=== PATIENT | female | born 1935 | race Caucasian/White ===

== ENCOUNTER 2016-09-29 14:52 | Inpatient (IN) | payer MEDICARE, BC ==
[~2016-09-29] VITALS: Ht 162.6 cm; Wt 72.6 kg
[~2016-09-29 14:52] MED LIST: ALTACE5 MG PO; BACTRIM DS TABL1 TAB PO; DURAGESIC1 PATCH .2 TD; NORVASC5 MG PO; PERCOCET 10/3251 TA1 PO
--- NOTE | 2016-09-29 19:00 | NUR ---
PATIENT SUPINE IN BED. HOB 30 DEGREES. AAOX4. RR EVEN AND UNLABORED. 0 S/S OF DISTRESS. STATES PAIN IS AN 11. IV TO LEFT AC PATENT WITH NO REDNESS OR SWELLING. SLINE TO RUE. FAMILY AT BEDSIDE.
[2016-09-29] MEDS ORDERED: MOBIC7.5 MG PO (20:24)
[2016-09-29] MEDS ORDERED: GLUCOPHAGE500 MG PO (20:25)
[2016-09-29] MEDS ORDERED: NEXIUM40 MG PO (20:27)
[2016-09-29] MEDS ORDERED: ROBAXIN-750750 MG PO (20:27)
[2016-09-29] MEDS ORDERED: GABAPENTIN100 MG PO (20:29)
[2016-09-29 20:39] VITALS: BP 129/40; BMI 27.5
--- NOTE | 2016-09-29 21:00 | NUR ---
ASSESSMENT AND ADMIT COMPLETE. INSERTED LEBRON CATHETER PER ORDER. INITIATED IV FLUIDS PER ORDER. DILAUDID GIVEN FOR PAIN. WILL REASSESS. PUT SCD'S ON PATIENT. ATTACHED BOX ALARM. ATTEMPTED TO PLACE PATIENT ON TELEMETRY PER ORDER, BUT NO BOXES AVAILABLE.
[2016-09-30] VITALS: BP 154/47
--- NOTE | 2016-09-30 03:58 | NUR ---
PATIENT'S BP IS 173/53 BUT SHE IS STATING HER PAIN IS A 15/10. MORPHINE GIVEN. WILL REASSESS BP AND PAIN LEVEL.
[2016-09-30 04:00] VITALS: BP 173/53
--- NOTE | 2016-09-30 07:30 | NUR ---
PT ASSESSMENT COMPLETE AWAKE AND ALERT ORINETD X 3 LUNGS CLEAR BILAT.PT WITH SLING NOTED TO RIGHT SHOULDER HAS NOTED FX HUMEROUS NPO FOR OR TODAY WITH DR JAY FOR ORIF. HAS NOTED PAIN CONTROL AT THIS TIME. LEBRON PATENT TO CLEAR YELLOW URINE PER GRAVITY FLOW. WILL MONITOR.
[2016-09-30 07:40] VITALS: BP 104/80
[2016-09-30 08:09] LABS: BASOPHILS 0.2 % (0-2); EOSINOPHILS 0.9 % (0-7); HEMATOCRIT 26.6 % (36.0-48.0); HEMOGLOBIN 8.8 g/dL (12-16); IMMATURE GRANULOCYTES 0.2 % (0-5); MCH 30.9 pg (26.0-34.0); MCHC 33.1 g/dL (31.0-37.0); MCV 93.3 fL (80.0-100.0); MEAN PLATELET VOLUME 10.9 fL (7.4-10.4); MONOCYTES 10.6 % (2-11); NEUTROPHILS 75.1 % (40-80); RBC 2.85 10x6/uL (4.00-5.40); RDW 12.7 % (11.5-14.5); WBC 10.6 10x3/uL (4.8-10.8)
[2016-09-30 08:13] LABS: PLATELET COUNT 162 10x3/uL (130-400)
[2016-09-30 08:18] LABS: APTT 26.9 SECONDS (22.8-39.4)
[2016-09-30 08:22] LABS: ANION GAP 9.3 mmol/L (8-16); CALCIUM 8.4 mg/dL (8.5-10.1); CARBON DIOXIDE 29.5 mmol/L (21.0-32.0); CREATININE - SERUM 0.9 mg/dL (0.6-1.3); POTASSIUM - SERUM 4.8 mmol/L (3.5-5.1)
--- NOTE | 2016-09-30 09:09 | NUR ---
* Is the patient Alert and Oriented? Yes 0 * How many steps to enter\exit or inside your home? 15 0 * PCP [facility] 0 * Pharmacy [facility] [place] 0 * Preadmission Environment Home with Family 0 * ADLs Independent 0 * Equipment Elevated [place] Seat Glucometer Rolling Walker Shower Chair Walker 0 * List name and contact numbers for known caregivers / representatives who currently or will assist patient after discharge: PHILIP () 0 * Community resources currently utilized None 0 * Additional services required to return to the preadmission environment? Yes 0 * Can the patient safely return to the preadmission environment? Yes 0 * Has this patient been hospitalized within the prior 30 days at any hospital? No 0 Grand Total: 0 Patient Name: SUSANNA ARROYO Admission Status: ER Accout number: [id number] Admission Date: 09-29-2016 : 1935 Admission Diagnosis: Attending: AARTI Current LOS: 1 Anticipated DC Date: Planned Disposition: Home Primary Insurance: MEDICARE A & B Discharge Planning Comments: CM met with patient to assess discharge planning/needs. Patient lives at home with her (Philip) She has 15 steps to her bedroom. She uses a walker at all times and she is concerned about using her walker and not being able to use her broken arm. She has an elevated toilet seat, glucometer, shower chair and a walker. CM spoke with PT and they are aware of patients concerns. Patient stated that her daughter will be the one to take her home. ([place]outre[facility] Zeeland -[phone]) CM will continue to follow and assist. PCP: [facility]: [facility] [place] - [place] Daughter: Abbie Meadows [phone] Credit Risk Associate: Tamiko Alejandro
[2016-09-30 12:24] VITALS: BP 128/65
[2016-09-30 12:40] VITALS: Ht 162.6 cm; Wt 72.6 kg
[2016-09-30 17:33] VITALS: BP 149/77
--- NOTE | 2016-09-30 17:39 | NUR ---
RECIEVED TO ROOM 2212 FROM RECOVERY ROOM BEDSIDE HAND OFF WITH GENE RN PT RESTING WELL IN LOW FOWLERS SLING NOTED TO RIGHT ARM S/P ORIF RIGHT HUMEROUS AND SHOULDER FX. TOLERATED WELL HAD INTRASCALINE BLOCK NOTED TO RIGHT SHOULDER PAIN FREE AT THIS TIME FAMILY AT BEDSIDE.
[2016-09-30 19:00] VITALS: BP 143/80
--- NOTE | 2016-09-30 19:00 | NUR ---
PATIENT RESTING WITH EYES CLOSED. AROUSES TO VOICE. RR EVEN AND UNLABORED. 0 S/S OF DISTRESS. STATES PAIN IS AN 8/10. IV TO LEFT AC PATENT WITH NO REDNESS OR SWELLING. DRESSING TO RIGHT SHOULDER CDI. SLING TO RUE WITH ICE. LEBRON SECURED WITH STATLOCK AND DRAINING TO GRAVITY. B/A ON. FAMILY AT BEDSIDE. SRX2. BED LOW. CALL LIGHT WITHIN REACH.
--- NOTE | 2016-09-30 19:14 | NUR ---
REMAINS WITHOUT NEEDS.CALL LIGHT IN REACH
--- NOTE | 2016-09-30 22:00 | NUR ---
MORPHINE GIVEN FOR PAIN. WILL REASSESS.
[2016-10-01] VITALS: BP 117/51
[2016-10-01 04:00] VITALS: BP 136/51
[2016-10-01 05:38] LABS: HEMATOCRIT 22.5 % (36.0-48.0)
[2016-10-01 05:54] LABS: HEMOGLOBIN 7.4 g/dL (12-16)
--- NOTE | 2016-10-01 07:30 | NUR ---
PT ASSESSMENT COMPLETE NO DISTRESS NOTED VOICES ALL NEEDS TO STAFF CALL LIGHT IN REACH HAS SLING NOTED TO RIGHT ARM S/P ORIF SHOULDER AND HUMEROUS. PIV PATENT NO REDNESS OR TENDERNESS NOTED. SCDS IN PLACE.
[2016-10-01 07:36] VITALS: BP 130/42
--- NOTE | 2016-10-01 11:30 | NUR ---
CM REASSESSMENT NOTE: PATIENT AGREED AND SIGNED [facility] TO [facility] IN [place]. CM SPOKE WITH [facility] AND REFERRAL SENT. DISCHARGE COULD POSSIBLY BE TOMORROW ON TUESDAY. [facility] WILL CALL CM BACK AND LET US KNOW REGARDING DAY THEY COULD GET HER.
[2016-10-01 12:09] VITALS: BP 128/45
--- NOTE | 2016-10-01 12:11 | NUR ---
UNIT #1 OF PRBC INITATED AT THIS TIME PER AUDIO PRODUCTION INSTRUCTOR. WILL MONITOR PER PROTOCOL. PT IS CRYING AND STATES I DONT WANT TO KEEP LIVING IF I HAVE TO GO TO A LONG TERM. ATEMPTED TO CONSOLE PT IN THE FACT THAT IT WAS A REHAB AND THAT SHE CAN RECOVER AND WORK IN THERAPY TO PROGRESS TO HOME.
--- NOTE | 2016-10-01 13:02 | NUR ---
PT SITTING UP IN BED AT THIS TIME, [place] AT BEDSIDE. PT HAS BLOOD INFUSING AT THIS TIME, VITALS SIGNS PER PROTOCOL. PT RESTING WELL WITH NO COMPLAINTS OF PAIN OR DISCOMFORT. BED IN LOW POSITION AND CALL LIGHT WITHIN REACH. WILL CONTINUE TO MONITOR.
--- NOTE | 2016-10-01 14:39 | NUR ---
UNIT #1 OF 2 COMPLETE AT THIS TIME PT FAMILY IN ROOM VS WNL
--- NOTE | 2016-10-01 16:34 | NUR ---
CM REASSESSMENT NOTE: PATIENT WILL DISCHARGE TO [facility] TOMORROW BY AMBULANCE TO A SKILLED BED. PT STATED SHE COULD NOT SIT UP LONG ENOUGH FOR RIDE TO FACILITY. [facility]- [phone]
--- NOTE | 2016-10-01 18:14 | NUR ---
PATIENT RESTING IN BED WITH C/O 10/10 PAIN. ADMINISTERED PAIN MEDS PER ORDERS. NO VISIBLE SIGNS OF DISTRESS. BED IN LOWEST POSITION, CALL LIGHT WITHIN REACH, AND BED ALARM ON. ENCOURAGED THE PATIENT TO CALL IF SHE HAS FURTHER NEEDS.
--- NOTE | 2016-10-01 18:16 | NUR ---
FIRST NORCO PULLED FELL ON THE FLOOR. PULLED A SECOND NORCO TO ADMINISTER TO THE PATIENT.
[2016-10-01 20:00] VITALS: BP 119/54
[2016-10-02 00:11] VITALS: BP 143/31
[2016-10-02 04:00] VITALS: BP 133/78
[2016-10-02 05:37] LABS: HEMATOCRIT 30.9 % (36.0-48.0); HEMOGLOBIN 10.5 g/dL (12-16)
--- NOTE | 2016-10-02 07:45 | NUR ---
ASSESSMENT COMPLETE. IV TO L AC PATENT. NS INFUSING AT 50 CC/HR VIA PUMP.SLING IN USE TO R ARM. DRESSING C/D/I TO R SHOULDER. LEBRON PATENT DRAINING YELLOW URINE. DENIES ANY NEEDS AT PRESENT.
[2016-10-02 08:59] VITALS: BP 126/68
--- NOTE | 2016-10-02 12:00 | NUR ---
NO CHANGES NOTED AT PRESENT.
--- NOTE | 2016-10-02 13:01 | NUR ---
IV REMOVED. CATHETER TIP INTACT. NOT WANTING LEBRON CATHETER REMOVED AT THIS TIME.
[2016-10-02 13:13] VITALS: BP 147/59
--- NOTE | 2016-10-02 13:24 | NUR ---
REPORT CALLED TO ANGELITA MONROE LPN AT [facility] IN [place].
--- NOTE | 2016-10-02 14:30 | NUR ---
DRESSING TO R SHOULDER REMOVED. DEMOND INTACT TO INCISION. AQUACEL AG DRESSING APPLIED.
--- NOTE | 2016-10-02 15:15 | NUR ---
DC'D TO [facility] IN [place] VIA AMBULANCE. SCRIPT FOR CUNEY SENT WITH PATIENT.
== END 2016-10-02 15:15 | DRG 493 ==
LOC: D.ER 14:52 → D.MS 16:50
PROVIDERS: ADMIT Orthopaedic Surgery
PROC: 0PSC04Z Reposition Right Humeral Head with Internal Fixation Device, Open Approach (ICD-10-PCS; principal; 2016-09-29)
DX: S42.211A Unspecified displaced fracture of surgical neck of right humerus, initial encounter for closed fracture (principal); D62 Acute posthemorrhagic anemia; W19.XXXA Unspecified fall, initial encounter; I10 Essential (primary) hypertension; G89.29 Other chronic pain; E11.40 Type 2 diabetes mellitus with diabetic neuropathy, unspecified; K21.9 Gastro-esophageal reflux disease without esophagitis

== ENCOUNTER → 2017-01-11 16:12 | Outpatient (CLI) | payer MEDICARE, BC ==
[2016-09-30 12:40] VITALS: BMI 27.4
[~2017-01-11 16:12] MED LIST changes: +GABAPENTIN100 MG PO; +GLUCOPHAGE500 MG PO; +MOBIC7.5 MG PO; +NEXIUM40 MG PO; +ROBAXIN-750750 MG PO
== END | disposition home or self-care (01) ==
LOC: D.US 16:00
DX: M79.605 Pain in left leg (principal)